=== PATIENT | male | born 1985 | race Caucasian/White ===

== ENCOUNTER 2021-03-08 18:43 | Emergency (ER) | payer BC ==
[~2021-03-08] VITALS: Ht 160 cm; Wt 78.9 kg
[2021-03-08] MEDS ORDERED: ACETAMINOPHEN 500 MG TAB (TYLENOL) ONE (19:08)
[2021-03-08] MEDS ORDERED: IBUPROFEN 800 MG (MOTRIN) TAB PO ONE ×2 (19:08→19:15)
[2021-03-08] MEDS ORDERED: LACTATED RINGERS 1,000 ML IV ONE ×2 (19:08→19:15)
[2021-03-08] MEDS ORDERED: ACETAMINOPHEN 500 MG TAB (TYLENOL) PO PRN (19:15)
--- NOTE | 2021-03-08 19:26 | ED Respiratory ---
General Chief Complaint: Respiratory Problems Stated Complaint: COUGH, SHAKING, COVID POSITIVE Nursing Triage Note: dx with covid 03/05/21 reports sx began 02/28/21. persistant cough, fever, chills, runny nose, nausea/diarrhea. soa started today. Source: patient History of Present Illness Date Seen by Provider: Mar 08, 2021 Time Seen by Provider: 18:55 Initial Comments PT ARRIVES VIA POV--STATES HE WAS SENT HERE FROM [facility] PT STATES HE HAS BEEN SICK SINCE LAST Friday02/28/21 SEEN AT [facility] ON Friday03/05/21 AND TESTED + FOR COVID-19 AT THAT TIME C/O NON-PRODUCTIVE COUGH C/O SHORTNESS OF BREATH--WORSE TODAY C/O PAIN WITH BREATHING IN CHEST AND IN HIS BACK C/O SUBJECTIVE FEVER AND CHILLS AND HAS BEEN SHAKING C/O RUNNY NOSE C/O SORE THROAT C/O NAUSEA, NO VOMITING. HAS HAD DECREASED INTAKE C/O DIARRHEA--2 EPISODES TODAY C/O HEADACHE C/O BODY ACHES NO LOSS OF TASTE OR SMELL HAS NOT TAKEN ANYTHING FOR SYMPTOMS FOR THE LAST COUPLE OF DAYS NO CHRONIC ILLNESSES PT IS NON-SMOKER IS ILL WITH SAME, 3 CHILDREN IN HOME HAVE NOT HAD ANY SYMPTOMS AND THEY HAVE NOT BEEN TESTED. PCP: [facility] Allergies and Home Medications Allergies Coded Allergies: No Known Drug Allergies (Unverified , 03/08/21) Home Medications Azithromycin 500 Mg Tablet, 500 MG PO DAILY Prescribed by: PASCUAL GLOVER on 03/08/212143 Cefdinir 300 Mg Capsule, 300 MG PO BID Prescribed by: PASCUAL GLOVER on 03/08/212143 Dexamethasone 6 Mg Tablet, 6 MG PO DAILY Prescribed by: PASCUAL GLOVER on 03/08/212143 Patient Home Medication List Home Medication List Reviewed: Yes Review of Systems Review of Systems Constitutional: see HPI, chills, fever EENTM: see HPI, nose congestion Respiratory: see HPI, cough, short of breath Cardiovascular: see HPI, chest pain Gastrointestinal: see HPI, diarrhea, loss of appetite, nausea; No vomiting Genitourinary: no symptoms reported Musculoskeletal: see HPI (BODY ACHES), back pain Skin: no symptoms reported Psychiatric/Neurological: See HPI, Headache Hematologic/Lymphatic: No Symptoms Reported Immunological/Allergic: no symptoms reported Past Yaejlze-Awaywl-Ciyeac Hx Patient Social History Tobacco Use?: No Smoking Status: Never a Smoker Smokeless Tobacco Frequency: Never a User Use of E-Cig and/or Vaping dev: No Substance use?: Yes Substance type: Marijuana, Other (COCAINE) Additional substance use comme: hx cocaine/cannibus-SNORTED COCAINE, SMOKED TH C Substance frequency: Once in a while Alcohol Use?: Yes Alcohol type: Beer Alcohol Frequency: Couple times a week Pt feels they are or have been: No Past Medical History Surgery/Hospitalization HX: none Surgeries: No Respiratory: No Cardiac: No Neurological: No Genitourinary: No Gastrointestinal: No Musculoskeletal: No Endocrine: No HEENT: No Cancer: No Psychosocial: No Integumentary: No Blood Disorders: No Physical Exam Vital Signs - First Documented 03/08/21 18:59 Temp 39.5 Pulse 96 Resp 18 B/P (MAP) 98/72 (81) Pulse Ox 94 O2 Delivery Room Air Capillary Refill : Less Than 3 Seconds Height: '" Weight: lbs. oz. kg; 30.00 BMI Method: General Appearance: WD/WN, other (MILDLY DYSPNEIC AND TACHYPNEIC) HEENT: PERRL/EOMI, normal ENT inspection, TMs normal, pharynx normal Neck: normal inspection Respiratory: no accessory muscle use, decreased breath sounds (IN BASES), other (MILD TACHYPNEA AND DYSPNEA) Cardiovascular: normal peripheral pulses, regular rate, rhythm, no JVD, no murmur Gastrointestinal: non tender, soft Extremities: normal inspection, normal capillary refill Neurologic/Psychiatric: no motor/sensory deficits, alert, oriented x 3 Skin: normal color (PT IS ), warm/dry; No rash; tattoos/piercings (TATTOOS) Focused Exam Lactate Level 03/08/21 19:10: Lactic Acid Level 2.50*H 03/08/21 21:32: Lactic Acid Level 1.22 Lactic Acid Level Laboratory Tests Test 03/08/21 19:10 03/08/21 21:32 Lactic Acid Level 2.50 MMOL/L (0.50-2.00) *H 1.22 MMOL/L (0.50-2.00) Progress/Results/Core Measures Suspected Sepsis SIRS Temperature: Pulse: 96 Respiratory Rate: 18 Laboratory Tests 03/08/21 19:10: White Blood Count 6.3 Blood Pressure 98 /72 Mean: 81 03/08/21 19:10: Lactic Acid Level 2.50*H 03/08/21 21:32: Lactic Acid Level 1.22 Laboratory Tests 03/08/21 19:10: Creatinine 0.97, INR Comment 0.9, Platelet Count 173, Total Bilirubin 0.6 Results/Orders Lab Results Laboratory Tests Test 03/08/21 19:10 03/08/21 19:33 03/08/21 21:32 Range/Units White Blood Count 6.3 4.3-11.0 10^3/uL Red Blood Count 5.07 4.30-5.52 10^6/uL Hemoglobin 15.0 13.3-17.7 g/dL Hematocrit 44 40-54 % Mean Corpuscular Volume 87 80-99 fL Mean Corpuscular Hemoglobin 30 25-34 pg Mean Corpuscular Hemoglobin Concent 34 32-36 g/dL Red Cell Distribution Width 12.9 10.0-14.5 % Platelet Count 173 130-400 10^3/uL Mean Platelet Volume 11.4 9.0-12.2 fL Immature Granulocyte % (Auto) 1 % Neutrophils (%) (Auto) 81 H 42-75 % Lymphocytes (%) (Auto) 13 12-44 % Monocytes (%) (Auto) 6 0-12 % Eosinophils (%) (Auto) 0 0-10 % Basophils (%) (Auto) 0 0-10 % Neutrophils # (Auto) 5.1 1.8-7.8 10^3/uL Lymphocytes # (Auto) 0.8 L 1.0-4.0 10^3/uL Monocytes # (Auto) 0.4 0.0-1.0 10^3/uL Eosinophils # (Auto) 0.0 0.0-0.3 10^3/uL Basophils # (Auto) 0.0 0.0-0.1 10^3/uL Immature Granulocyte # (Auto) 0.0 0.0-0.1 10^3/uL Erythrocyte Sedimentation Rate 43 H 0-15 MM/HR Prothrombin Time 12.6 12.2-14.7 SEC INR Comment 0.9 0.8-1.4 Activated Partial Thromboplast Time 32 24-35 SEC D-Dimer 1.17 H 0.00-0.49 UG/ML Sodium Level 136 135-145 MMOL/L Potassium Level 3.9 3.6-5.0 MMOL/L Chloride Level 98 98-107 MMOL/L Carbon Dioxide Level 25 21-32 MMOL/L Anion Gap 13 5-14 MMOL/L Blood Urea Nitrogen 15 7-18 MG/DL Creatinine 0.97 0.60-1.30 MG/DL Estimat Glomerular Filtration Rate > 60 BUN/Creatinine Ratio 15 Glucose Level 119 H 70-105 MG/DL Lactic Acid Level 2.50 *H 1.22 0.50-2.00 MMOL/L Calcium Level 8.4 L 8.5-10.1 MG/DL Corrected Calcium 8.5 8.5-10.1 MG/DL Magnesium Level 2.2 1.6-2.4 MG/DL Total Bilirubin 0.6 0.1-1.0 MG/DL Aspartate Amino Transf (AST/SGOT) 33 5-34 U/L Alanine Aminotransferase (ALT/SGPT) 24 0-55 U/L Alkaline Phosphatase 79 40-136 U/L Lactate Dehydrogenase 440 H 125-220 U/L Myoglobin 70.2 10.0-92.0 NG/ML C-Reactive Protein High Sensitivity 7.74 H 0.00-0.50 MG/DL Total Protein 7.2 6.4-8.2 GM/DL Albumin 3.9 3.2-4.5 GM/DL Procalcitonin 0.14 H <0.10 NG/ML Urine Color ORANGE Urine Clarity CLEAR Urine pH 6.0 5-9 Urine Specific [place] >=1.030 1.016-1.022 Urine Protein 2+ H NEGATIVE Urine Glucose (UA) NEGATIVE NEGATIVE Urine Ketones TRACE H NEGATIVE Urine Nitrite NEGATIVE NEGATIVE Urine Bilirubin NEGATIVE NEGATIVE Urine Urobilinogen 4.0 < = 1.0 MG/DL Urine Leukocyte Esterase NEGATIVE NEGATIVE Urine RBC (Auto) 1+ H NEGATIVE Urine RBC 0-2 /HPF Urine WBC 2-5 /HPF Urine Crystals PRESENT H /LPF Urine Amorphous Sediment LARGE STEVE URATES H /LPF Urine Bacteria TRACE /HPF Urine Casts NONE /LPF Urine Mucus LARGE H /LPF Urine Culture Indicated NO Urine Opiates Screen NEGATIVE NEGATIVE Urine Oxycodone Screen NEGATIVE NEGATIVE Urine Methadone Screen NEGATIVE NEGATIVE Urine Propoxyphene Screen NEGATIVE NEGATIVE Urine Barbiturates Screen NEGATIVE NEGATIVE Ur Tricyclic Antidepressants Screen NEGATIVE NEGATIVE Urine Phencyclidine Screen NEGATIVE NEGATIVE Urine Amphetamines Screen NEGATIVE NEGATIVE Urine Methamphetamines Screen NEGATIVE NEGATIVE Urine Benzodiazepines Screen NEGATIVE NEGATIVE Urine Cocaine Screen NEGATIVE NEGATIVE Urine Cannabinoids Screen NEGATIVE NEGATIVE My Orders Orders - PASCUAL GLOVER DO Acetaminophen Tablet (Tylenol Tablet) (03/08/21 19:08) Ibuprofen Tablet (Motrin Tablet) (03/08/21 19:08) Lactated Ringers (Lr 1000 Ml Iv Solution (03/08/21 19:08) Ed Iv/Invasive Line Start (03/08/21 19:14) Ekg Tracing (03/08/21 19:14) Monitor-Rhythm Ecg Trace Only (03/08/21 19:14) Cbc With Automated Diff (03/08/21:14) Comprehensive Metabolic Panel (03/08/21 19:14) Fibrin Degradation Products (03/08/21 19:14) Drug Screen Stat (Urine) (03/08/21 19:14) Lactic Acid Analyzer (03/08/21 19:14) Magnesium (03/08/21 19:14) Protime With Inr (03/08/21 19:14) Partial Thromboplastin Time (03/08/21 19:14) Ua Culture If Indicated (03/08/21 19:14) Blood Culture (03/08/21 19:14) Myoglobin Serum (03/08/21 19:14) Chest 1 View, Ap/Pa Only (03/08/21 19:14) Ed Iv/Invasive Line Start (03/08/21 19:14) Lactated Ringers (Lr 1000 Ml Iv Solution (03/08/21 19:15) Procalcitonin (Pct) (03/08/21 19:14) Hs C Reactive Protein (03/08/21 19:14) Erythrocyte Sedimentation Rate (03/08/21 19:14) LDH (03/08/21 19:14) Acetaminophen Tablet (Tylenol Tablet) (03/08/21 19:15) Ed Iv/Invasive Line Start (03/08/21 19:14) Vital Signs Adult Sepsis Patie Q15M (03/08/21 19:14) O2 (03/08/21 19:14) Remove Rings In Anticipation O (03/08/21 19:14) Ibuprofen Tablet (Motrin Tablet) (03/08/21 19:15) Ct Angio Chest W (03/08/21 20:07) Dexamethasone Injection (Decadron Inje (03/08/21 20:15) Albuterol Inhaler (Ventolin Hfa) (03/08/21 20:15) Iohexol Injection (Omnipaque 350 Mg/Ml 1 (03/08/21 20:15) Received Contrast (Hold Metformin- Contr (03/08/21 20:15) Sodium Chloride Flush (Catheter Flush Sy (03/08/21 20:15) Ns (Ivpb) (Sodium Chloride 0.9% Ivpb Bag (03/08/21 20:15) O2 (03/08/21 20:11) Cefdinir Capsule (Omnicef Capsule) (03/08/21 21:45) Azithromycin Tablet (Zithromax Tablet) (03/08/21 21:45) Medications Given in ED Current Medications Medications Dose Ordered Sig/Hilaria Route Start Time Stop Time Status Last Admin Dose Admin Acetaminophen 1,000 mg ONCE PRN PO 03/08/21 19:15 03/08/21 19:24 DC 03/08/21 19:23 1,000 MG Azithromycin 500 mg ONCE ONCE PO 03/08/21 21:45 03/08/21 21:46 DC 03/08/21 21:51 500 MG Cefdinir 300 mg ONCE ONCE PO 03/08/21 21:45 03/08/21 21:46 DC 03/08/21 21:52 300 MG Ibuprofen 800 mg ONCE ONCE PO 03/08/21 19:15 03/08/21 19:17 DC 03/08/21 19:23 800 MG Iohexol 100 ml ONCE ONCE IV 03/08/21 20:15 03/08/21 20:16 DC 03/08/21 20:39 70 ML Lactated Ringer's 1,000 ml @ 0 mls/hr Q0M ONCE IV 03/08/21 19:15 03/08/21 19:18 DC 03/08/21 19:23 0 MLS/HR Sodium Chloride 10 ml NEEDED PRN IV 03/08/21 20:15 03/08/21 21:56 DC 03/08/21 20:40 10 ML Sodium Chloride 100 ml ONCE ONCE IV 03/08/21 20:15 03/08/21 20:16 DC 7/15/21 20:39 70 ML Vital Signs/I&O 03/08/21 03/08/21 03/08/21 03/08/21 18:59 19:23 19:23 21:55 Temp 39.5 39.5 39.5 37.6 Pulse 96 84 Resp 18 16 B/P (MAP) 98/72 (81) 115/77 (81) Pulse Ox 94 95 O2 Delivery Room Air Room Air 03/08/21 23:59 Intake Total 1000 ml Balance 1000 ml Capillary Refill : Less Than 3 Seconds Blood Pressure Mean: 81 Progress Note : Progress Note PLACED IN ISOLATION ROOM PPE WORN AT ALL TIMES O2 SAT 95% ON ROOM AIR RESPIRATORY RATE DECREASED ONCE PT SETTLED ON ER CART GIVEN DECADRON AND ALBUTEROL INHALER TREATMENT WITH IMPROVEMENT IN SYMPTOMS GIVEN TYLENOL AND MOTRIN FOR FEVER NO DETERIORATION IN PT'S CONDITION DURING ER STAY TEMP AND HEART RATE DOWN AT DISMISSAL BP IN 110'S SYSTOLIC WITH FLUIDS ECG Initial ECG Impression Date: Mar 08, 2021 Initial ECG Impression Time: 19:22 Initial ECG Rate: 98 Initial ECG Rhythm: Normal Sinus Initial ECG Comparisson: No Previous ECG Available Diagnostic Imaging Comments CXR--PER RADIOLOGIST REPORT Impression: There are small patchy airspace opacities involving both lungs concerning for lung infiltrates/pneumonia. CT CHEST ANGIOGRAM--PER RADIOLOGIST REPORT Impression: 1: There is no evidence of pulmonary embolism, as visualized. There is no thoracic aortic aneurysm or dissection. 2: There are multiple focal and confluent areas of groundglass opacification scattered throughout both lungs most pronounced in the periphery. There are segmental and subsegmental areas of consolidation and areas of patchy consolidation involving both lower lobes. These findings are concerning for pneumonia. Covid pneumonia is a consideration. 3: There is mediastinal and hilar lymphadenopathy. There is no pleural effusion. Reviewed: Reviewed by Me Departure Impression Primary Impression: Pneumonia due to COVID-19 virus Disposition: 01 HOME, SELF-CARE Condition: Improved Departure-Patient Inst. Referrals: [facility] Patient Instructions: Atypical Pneumonia (Mycoplasma and Viral) (DC), COVID-19 ED, Preventing the Spread of an Infectious Disease Add. Discharge Instructions: TYLENOL 1 GRAM / MOTRIN 800 MG 4 TIMES A DAY NEEDED FOR PAIN OR FEVER OVER 101 LOTS OF CLEAR LIQUIDS USE INHALER 2 PUFFS EVERY 4 HOURS NEEDED FOR SHORTNESS OF BREATH-USE SPACER AT ALL TIMES FOLLOW UP WITH [facility] IN 2-3 DAYS FOR FURTHER CARE, RETURN TO ER IF WORSE ALL [employer] MEM[employer]ERS AND CLOSE CONTACTS NEED TO QUARANTINE FOR 2 WEEKS All discharge instructions reviewed with patient and/or family. Voiced understanding. Scripts Azithromycin (Zithromax) 500 Mg Tablet 500 MG PO DAILY for 5 Days, #5 TAB Prov: PASCUAL GLOVER DO 03/08/21 Cefdinir (Cefdinir) 300 Mg Capsule 300 MG PO BID, #20 CAP Prov: PASCUAL GLOVER DO 03/08/21 Dexamethasone (Decadron) 6 Mg Tablet 6 MG PO DAILY, #10 TAB Prov: PASCUAL GLOVER DO 03/08/21 PASCUAL GLOVER DO Mar 08, 2021 19:26
[2021-03-08 19:40] LABS: BASOPHILS % (AUTO) 0 % (0-10); EOSINOPHILS % (AUTO) 0 % (0-10); HEMATOCRIT 44 % (40-54); LYMPHOCYTES # (AUTO) 0.8 10^3/uL (1.0-4.0); LYMPHOCYTES % (AUTO) 13 % (12-44); MEAN CORPUSCULAR HEMOGLOBIN 30 pg (25-34); MEAN CORPUSCULAR HGB CONC 34 g/dL (32-36); MEAN CORPUSCULAR VOLUME 87 fL (80-99); MEAN PLATELET VOLUME 11.4 fL (9.0-12.2); MONOCYTES # (AUTO) 0.4 10^3/uL (0.0-1.0); MONOCYTES % (AUTO) 6 % (0-12); NEUTROPHILS # (AUTO) 5.1 10^3/uL (1.8-7.8); NEUTROPHILS % (AUTO) 81 % (42-75); PLATELET COUNT 173 10^3/uL (130-400); WHITE BLOOD COUNT 6.3 10^3/uL (4.3-11.0)
[2021-03-08 19:45] LABS: BILIRUBIN,URINE NEGATIVE (NEGATIVE); CLARITY,URINE CLEAR; COLOR,URINE ORANGE; GLUCOSE, URINE (UA) NEGATIVE (NEGATIVE); KETONES,URINE TRACE (NEGATIVE); LEUKOCYTE ESTERASE ,URINE NEGATIVE (NEGATIVE); NITRITE,URINE NEGATIVE (NEGATIVE); PROTEIN,URINE 2+ (NEGATIVE)
[2021-03-08 19:52] LABS: ALBUMIN 3.9 GM/DL (3.2-4.5)
[2021-03-08 19:53] LABS: CALCIUM 8.4 MG/DL (8.5-10.1)
[2021-03-08 19:54] LABS: GLUCOSE 119 MG/DL (70-105)
[2021-03-08 19:55] LABS: TOTAL PROTEIN 7.2 GM/DL (6.4-8.2)
[2021-03-08 19:56] LABS: BILIRUBIN,TOTAL 0.6 MG/DL (0.1-1.0); CARBON DIOXIDE 25 MMOL/L (21-32); FIBRIN DEGRADATION PRODUCTS 1.17 UG/ML (0.00-0.49); INR 0.9 (0.8-1.4); PROTHROMBIN TIME PATIENT 12.6 SEC (12.2-14.7)
[2021-03-08 19:58] LABS: ALKALINE PHOSPHATASE 79 U/L (40-136); CREATININE SERUM 0.97 MG/DL (0.60-1.30); GFR ESTIMATED > 60
[2021-03-08 19:59] LABS: BUN/CREATININE RATIO 15
[2021-03-08 20:01] LABS: ALANINE AMINOTRANSFERASE 24 U/L (0-55); MAGNESIUM 2.2 MG/DL (1.6-2.4)
[2021-03-08 20:02] LABS: AMORPHOUS SEDIMENT,UR LARGE AMOR URATES /LPF; BACTERIA,URINE TRACE /HPF; RBC,URINE 0-2 /HPF
[2021-03-08 20:11] LABS: AMPHETAMINE SCREEN, URINE NEGATIVE (NEGATIVE); BARBITURATE SCREEN URINE NEGATIVE (NEGATIVE); BENZODIAZEPINES SCREEN URINE NEGATIVE (NEGATIVE); CANNABINOID SCREEN, URINE NEGATIVE (NEGATIVE); COCAINE SCREEN URINE NEGATIVE (NEGATIVE); METHADONE STAT NEGATIVE (NEGATIVE); METHAMPHETAMINE SCREEN URINE S NEGATIVE (NEGATIVE); OPIATE SCREEN URINE NEGATIVE (NEGATIVE); OXYCODONE STAT NEGATIVE (NEGATIVE); PROPOXYPHENE STAT NEGATIVE (NEGATIVE); TRICYCLIC ANTIDEPRESSANTS SCRE NEGATIVE (NEGATIVE)
[2021-03-08] MEDS ORDERED: CATHETER FLUSH 10 ML SYR IV PRN (20:15)
[2021-03-08] MEDS ORDERED: HOLD METFORMIN - RECEIVED CONTRAST 20 ML VIAL IV SCH (20:15)
[2021-03-08] MEDS ORDERED: IOHEXOL 350 MG/ML 100 ML (OMNIPAQUE 350) VIAL IV ONE (20:15)
[2021-03-08] MEDS ORDERED: RT-ALBUTEROL INHALER HFA (VENTOLIN HFA) 18 GM IH SCH (20:15)
[2021-03-08] MEDS ORDERED: NS 100 ML (IVPB) BAG IV ONE (20:15)
[2021-03-08 20:16] LABS: ERYTHROCYTE SEDIMENTATION RATE 43 MM/HR (0-15)
--- NOTE | 2021-03-08 20:52 | Diagnostic Imaging Report ---
Clinical indications: Patient Covid positive with dyspnea. Exam: Portable chest x-ray upright view. Comparisons: None. Findings: Lungs/pleura: There are small patchy airspace opacities involving both lungs concerning for infiltrates. There is no pneumothorax. There is no pleural effusion. Mediastinum: Unremarkable. Pulmonary vasculature: Unremarkable. Heart: Unremarkable. Bones/extrathoracic soft tissue: Unremarkable. Impression: There are small patchy airspace opacities involving both lungs concerning for lung infiltrates/pneumonia. Dictated by: Dictated on workstation # [id number]
[2021-03-08 20:59] LABS: CHLORIDE 98 MMOL/L (98-107); POTASSIUM 3.9 MMOL/L (3.6-5.0); SODIUM 136 MMOL/L (135-145)
--- NOTE | 2021-03-08 21:30 | Diagnostic Imaging Report ---
Clinical indication: Patient is Covid positive with shortness of air. PE suspected. Exam: CT angiogram of the chest performed with 70 cc Omnipaque 350 IV contrast. Coronal and oblique MIP images of the vasculature were created to better evaluate anatomy. Auto Exposure Controls were utilized during the CT exam to meet ALARA standards for radiation dose reduction. Comparison: Chest x-ray dated 03/08/2021. Findings: Lung disease limits evaluation of the more distal pulmonary arteries. There is no evidence of pulmonary embolism, as visualized. There is no thoracic aortic dissection or aneurysm. There are multifocal and confluent areas of groundglass opacification scattered throughout both lungs most pronounced in the periphery. There is segmental and subsegmental areas of consolidation and patchy consolidation involving both lower lobes. There is no pneumothorax. There is no pleural effusion. There is lymphadenopathy in the mediastinum and bilateral hilar regions. There is no pleural effusion pneumothorax. There is no mediastinal or axillary lymphadenopathy. Mediastinal structures and heart shows no significant abnormality. The visualized portions of the upper abdominal structures are unremarkable. Bone show no significant acute process. Impression: 1: There is no evidence of pulmonary embolism, as visualized. There is no thoracic aortic aneurysm or dissection. 2: There are multiple focal and confluent areas of groundglass opacification scattered throughout both lungs most pronounced in the periphery. There are segmental and subsegmental areas of consolidation and areas of patchy consolidation involving both lower lobes. These findings are concerning for pneumonia. Covid pneumonia is a consideration. 3: There is mediastinal and hilar lymphadenopathy. There is no pleural effusion. Dictated by: Dictated on workstation # [id number]
[2021-03-08] MEDS ORDERED: DEXA6TAB6 PO (21:44)
[2021-03-08] MEDS ORDERED: AZIT500T PO (21:44)
[2021-03-08] MEDS ORDERED: CEFD300C3 PO (21:44)
[2021-03-08] MEDS ORDERED: CEFDINIR 300 MG (OMNICEF) CAP PO ONE (21:45)
[2021-03-08] MEDS ORDERED: AZITHROMYCIN 250 MG TAB (ZITHROMAX) PO ONE (21:45)
[2021-03-08 21:55] VITALS: BP 115/77
== END 2021-03-08 21:55 | disposition home or self-care (01) ==
LOC: ER 18:50
DX: U07.1 COVID-19 (principal); J12.82 Pneumonia due to coronavirus disease 2019
CPT/HCPCS: 36415; 71045; 71275; 80053; 80306; 81000; 83605; 83615; 83735; 83874; 84145; 85025; 85379; 85610; 85652; 85730; 86141; 87040; 93005; 93041